=== PATIENT | female | born 1990 | race Caucasian/White ===

== ENCOUNTER 2018-11-22 23:12 | Emergency (ER) | payer OTHER ==
[~2018-11-22] VITALS: Ht 157.5 cm; Wt 84.8 kg
[~2018-11-22 23:12] MED LIST: CYMBALTA30 MG PO; HYDROXYZINE HCL25 M1 PO; IBUPROFEN 600600 M1 PO; LYRICA 75 MG CA75 MG PO; SKELAXIN 800 M800 M1 PO; TRAMADOL 50 MG50 MG PO
[2018-11-23] MEDS ORDERED: NEURONTIN 300300 M1 PO (00:50)
[2018-11-23] MEDS ORDERED: LISINOPRIL10 MG PO (00:50)
[2018-11-23 01:19] LABS: BASOPHILS 1.1 % (0.0-2.0); EOSINOPHILS 1.3 % (0.0-3.0); HEMATOCRIT 39.1 % (37.0-47.0); HEMOGLOBIN 13.5 gm/dL (12.0-15.0); MCHC 34.6 g/dL (28.0-37.0); MCV 86.5 fL (80.0-100.0); MONOCYTES 10.2 % (1.0-8.0); PLATELET COUNT 316 thou/uL (150-400); POLYS 58.4 % (36.0-66.0); RBC 4.52 mil/uL (4.20-5.00); RDW 12.6 % (10.5-14.5)
[2018-11-23 01:36] LABS: ANION GAP 10 mmol/L (7-16); CALCIUM 9.4 mg/dL (8.5-10.1); CHLORIDE 100 mmol/L (98-107); CO2 27 mmol/L (21-32); CREATININE 0.7 mg/dL (0.6-1.0); GLUCOSE 100 mg/dL (74-106); POTASSIUM 3.5 mmol/L (3.5-5.1); SODIUM 137 mmol/L (136-145); TROPONIN-I <0.06 ng/mL (<0.06)
[2018-11-23 01:37] LABS: BUN 10 mg/dL (7-18)
[2018-11-23 04:13] VITALS: BP 105/60
--- NOTE | 2018-11-24 11:39 | EKG ---
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 : 1990 Requested By: Benton Barkley Order Number: [id number] MD: Amol Brown Measurements Intervals [place] Rate: 98 P: 50 WY: 148 QRS: 61 QRSD: 89 T: 12 QT: 331 QTc: 423 Interpretive Statements Sinus rhythm Normal tracing Baseline wander in lead(s) V1,V2 Compared to ECG 01/06/2015 23:03:04 T-wave abnormality no longer present Electronically Signed On 11-24-2018 11:39:17 CDT by Amol Brown [email or web address] ��������������������������������������������� <ELECTRONICALLY SIGNED> ���������������������������������������� By: Amol Brown MD, [facility] ��������������������������������������������� 11/24/18 1139 22 22 Amol Brown MD, [facility] /EPI
== END 2018-11-23 04:14 | disposition home or self-care (01) ==
LOC: ER 23:12
PROVIDERS: Emergency Medicine
DX: R07.89 Other chest pain (principal); M79.605 Pain in left leg; M79.7 Fibromyalgia; I10 Essential (primary) hypertension; Z90.710 Acquired absence of both cervix and uterus; Z98.890 Other specified postprocedural states; Z88.5 Allergy status to narcotic agent; Z88.6 Allergy status to analgesic agent; Z88.8 Allergy status to other drugs, medicaments and biological substances